=== PATIENT | male | born 1990 | race Caucasian/White ===

== ENCOUNTER 2022-07-04 09:51 | Emergency (ER) | payer MEDICARE, MEDICAID ==
[~2022-07-04] VITALS: Ht 175.3 cm; Wt 75.0 kg
[2022-07-04] MEDS ORDERED: CEPH-585 PO (10:45)
[2022-07-04] MEDS ORDERED: mupirocin 2% ointment 22GM TP STA (10:54)
--- NOTE | 2022-07-04 12:02 | NUR ---
Left buttocks wound changed per order with foam dressing, right wound Muciprocin applied with bandaid over top. Keflex prescription called into pharmacy. PT to f/u with Woundcare RN and PCP.
[2022-07-04 12:03] VITALS: BP 136/90
== END 2022-07-04 12:06 | disposition home or self-care (01) ==
LOC: ER 09:52
DX: L89.309 Pressure ulcer of unspecified buttock, unspecified stage (principal); L03.317 Cellulitis of buttock
CPT/HCPCS: 99283; A6212

== ENCOUNTER 2024-06-08 05:09 | Emergency (ER) | payer MEDICARE, MEDICAID ==
[~2024-06-08] VITALS: Ht 175.3 cm; Wt 70.5 kg
[2024-06-08 05:28] VITALS: TEMP 97.6
[2024-06-08] MEDS ORDERED: ketorolac trometh 30MG/ML vial 30 MG/ML VIAL IV ONE (06:50)
[2024-06-08] MEDS: orphenadrine citrate 60mg/2ml inj. IM ONE (07:39)
[2024-06-08] MEDS: ketorolac trometh 15mg/ml vial 15 MG/ML ML IM ONE (07:43)
[2024-06-08] MEDS ORDERED: CYCL-1 PO (09:26)
[2024-06-08 09:47] VITALS: BP 137/88; PULSE 57; RESP 16; O2SAT 98
== END 2024-06-08 09:52 | disposition home or self-care (01) ==
LOC: ER 05:09
DX: G62.9 Polyneuropathy, unspecified (principal); M62.838 Other muscle spasm; M25.512 Pain in left shoulder; I49.8 Other specified cardiac arrhythmias
CPT/HCPCS: 71250; 72125; 93005; 96372; 99285; J1885; J2360

== ENCOUNTER 2024-06-11 10:07 | Emergency (ER) | payer MEDICARE, MEDICAID ==
[~2024-06-11] VITALS: Ht 175.3 cm; Wt 70.5 kg
[~2024-06-11 10:07] MED LIST: CYCL-1 PO
[2024-06-11 10:35] LABS: BILIRUBIN,URINE NEGATIVE (Neg); CLARITY,URINE CLEAR (Clear); COLOR,URINE STRAW (Yellow); GLUCOSE, URINE NEGATIVE (Neg); KETONES,URINE NEGATIVE (Neg); LEUKOCYTE ESTERASE ,URINE NEGATIVE (Neg); NITRITES, URINE NEGATIVE (Neg); OCCULT BLOOD,URINE NEGATIVE (Neg); PROTEIN,URINE NEGATIVE (Neg); UROBILINOGEN,URINE 0.2 E.U/dL (0.2-1.0)
[2024-06-11 10:36] LABS: UA COLLECTION TYPE CLN CATCH MIDSTREAM
[2024-06-11 10:44] LABS: BASOPHILS % (AUTO) 0.3 % (0-1); EOSINOPHILS % (AUTO) 0.3 % (0-6); HEMATOCRIT 49.8 % (42.0-52.0); HEMOGLOBIN 17.1 g/dl (14.0-17.9); LYMPHOCYTES % (AUTO) 9.9 % (21-51); MEAN CORPUSCULAR HEMOGLOBIN 33.8 PG (27.0-31.0); MEAN CORPUSCULAR HGB CONC 34.4 g/dL (33.0-36.5); MEAN CORPUSCULAR VOLUME 98.3 FL (78-98); MEAN PLATELET VOLUME 7.4 FL (7.4-10.4); MONOCYTES # (AUTO) 0.4 X10'3 (0-0.9); MONOCYTES % (AUTO) 4.1 % (2-12); NEUTROPHILS # (AUTO) 8.8 X10'3 (1.8-7.7); NEUTROPHILS % (AUTO) 85.4 % (42-75); PLATELET COUNT 256 X10'3 (140-440); RED BLOOD COUNT 5.07 X10'6 (4.70-6.10); RED CELL DISTRIBUTION WIDTH 13.2 % (11.5-14.5); WHITE BLOOD COUNT 10.3 X10'3 (4.5-11.0)
[2024-06-11 10:55] LABS: ALANINE AMINOTRANSFERASE 30 U/L (12-78); ALBUMIN 4.1 G/DL (3.4-5.0); ALBUMIN/GLOBULIN RATIO 1.2 (1.1-1.5); ALKALINE PHOSPHATASE 64 IU/L (46-116); ANION GAP 11 (8-16); ASPARTATE AMINO TRANSFERASE 30 U/L (10-37); BILIRUBIN,TOTAL 0.8 MG/DL (0.1-1.0); BLOOD UREA NITROGEN 12 MG/DL (7-18); BUN/CREATININE RATIO 17.4 (10.0-20.0); CHLORIDE 109 MMOL/L (99-107); CREATININE 0.69 MG/DL (0.60-1.10); GLUCOSE 99 MG/DL (70-104); SODIUM 146 MMOL/L (135-145); TOTAL CARBON DIOXIDE 25.7 MMOL/L (24-32); TOTAL PROTEIN 7.6 G/DL (6.4-8.2); eCRCL 150 ML/MIN; eGFR > 90 ML/MIN
[2024-06-11 10:56] LABS: LIPASE 39 U/L (16-77)
[2024-06-11] MEDS: normal saline 1000ML IV soln IVB ONE (11:08)
[2024-06-11] MEDS: ketorolac trometh 15mg/ml vial 15 MG/ML ML IV ONE (11:11)
[2024-06-11] MEDS: LORazepam 2 mg/ml vial IV ONE (11:49)
[2024-06-11] MEDS: morphine 4 MG/ML inj SYRINge IV ONE (11:50)
[2024-06-11 13:23] VITALS: BP 140/113; PULSE 68; RESP 17; TEMP 97.7; O2SAT 95
== END 2024-06-11 13:25 | disposition home or self-care (01) ==
LOC: ER 10:08
DX: R10.9 Unspecified abdominal pain (principal); R42 Dizziness and giddiness; R11.0 Nausea; Z79.899 Other long term (current) drug therapy
CPT/HCPCS: 36415; 74176; 80053; 81003; 83690; 84145; 85025; 96361; 96374; 96375; 99285; J1885; J2060; J2270; J7030

== ENCOUNTER 2025-07-27 11:14 | Emergency (ER) | payer MEDICARE, MEDICAID ==
[~2025-07-27] VITALS: Ht 172.7 cm; Wt 72.7 kg
[2025-07-27 11:54] VITALS: TEMP 98.3
[2025-07-27] MEDS ORDERED: HYDR25SU32 RC (13:35)
--- NOTE | 2025-07-27 13:36 | Physician Documentation ---
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 The patient is coming in today complaining rectal he bright red blood. The patient has not known hemorrhoids and states that is he was concerned today because when he went with the bath and that has bright red blood dripping in the toilet. He was seen by colorectal surgeon who stated that with the time there was no need for surgery. He denies abdominal pain. He had eyes black tarry stools. He denies generalized weakness shortness of breath or chest pain. Medication Reconciliation Allergies: Coded Allergies: No Known Allergies (Unverified , 07/27/25) Scheduled PRN Cyclobenzaprine* (Cyclobenzaprine*), 1 TABLET PO Q8H PRN for muscle spasms Past Medical History Past Medical History: *MUSCULOSKELETAL* Past Surgical History: noncontributory Alcohol Use: None Drug Use: none Lives with: Father Lives In: Home Occupation: disabled Physical Exam Vital Signs: Temperature: 98.3, Source: Oral, Heart Rate: 71, Respiratory Rate: 12, BP: 143/96, Pulse Oximetry: 91, Weight: 72.730 Oxygen Flow Rate: 0 Pulse Oximetry Reflects: adequate oxygenation General Appearance: alert, WD/WN, no apparent distress Rectal The patient has multiple hemorrhoids. They are erythematous and firm. Very inflamed. No thrombosed hemorrhoids that would benefit from drainage. No active hemorrhaging of the rectum. No fissures. Progress Results/Orders Results/Orders Orders - ROMY PARMAR Patient In wn (07/27/25 ) Vital Signs 07/27/25 07/27/25 07/27/25 11:29 11:40 11:54 Temp 98.1 98.3 Pulse 103 71 Resp 16 12 B/P (MAP) 115/78 143/96 (112) Pulse Ox 95 91 O2 Flow Rate 0 Medical Decision Making Additional information obtaine: N/A Findings Patient has multiple external hemorrhoids. I told the patient from the ER standpoint there was not much to be done aside from prescribing Anusol HC suppositories. The patient states he uses topical lidocaine which does not provide much relief. The patient states you can follow up back up with the colorectal surgeon for re-evaluation hopefully surgery. The patient is otherwise hemodynamically stable. Diff Dx GI Bleed:Consideration: Include: AE fistula, Other (Internal hemorrhoids. External hemorrhoids. Lower GI bleed.) Departure Disposition: HOME / SELF CARE / HOMELESS Impression: Primary Impression: Hemorrhoids Condition: Stable Discharge Instructions: Hemorrhoids Additional Instructions: Use the suppository after bowel movement. Follow up with the your colorectal surgeon for re-evaluation and hopefully surgery. Return to the ER for any worsening or acute issues. Referrals: NO PRIMARY CARE PROVIDER (PCP) Prescriptions Hydrocortisone Acetate (Anusol-Hc) 25 Mg Supp.rect 1 SUPP RC Q12H for 14 Days, #28 SUPP 0 Refills Prov: ROMY PARMAR 07/27/25 Signature Scribe Signature: No scribe Attestation: The note accurately reflects work and decisions made by me.Romy REDDING 07/27/25 13:35 ROMY PARMAR Jul 27, 2025 13:36
[2025-07-27 13:46] VITALS: BP 128/88; PULSE 56; RESP 14; O2SAT 99
== END 2025-07-27 13:48 | disposition home or self-care (01) ==
LOC: ER 11:15
DX: K64.9 Unspecified hemorrhoids (principal); G82.50 Quadriplegia, unspecified
CPT/HCPCS: 99282